=== PATIENT | female | born 1990 | race Caucasian/White ===

== ENCOUNTER 2021-10-24 01:30 | Inpatient (IN) | payer MEDICAID ==
[~2021-10-24] VITALS: Ht 162.6 cm; Wt 113.2 kg
[2021-10-24] VITALS (24 sets, daily range): BP systolic 114–148; BP diastolic 56–89; PULSE 81–125; TEMP 97.9–99.3
--- NOTE | 2021-10-24 01:40 | NUR ---
0140- PATIENT WHEELED ONTO UNIT WITH FRIEND BY HER SIDE. PATIENT OF DR. ATWOOD WHO IS A AT 41.2. PATIENT REPORTS CONSISTENT CONTRACTIONS THAT ARE GETTING MORE PAINFUL OVER THE LAST FEW HOURS AND AT ONE POINT SHE WAS NOT SURE IF HER WATER BROKE OR IF SHE URINATED. PATIENT REPORTS GFM AND NO BLEEDING CONCERNS AT THIS TIEM. 0143- EFM AND TOCO ON AND TRACING. VITALS TAKEN, ASSESSMENT COMPLETED. PLAN OF CARE DISCUSSED. PATIENT DENIES FURTHER NEEDS OR QUESTIONS AT THIS TIME. CALL LIGHT WITHIN REACH.
[2021-10-24] MEDS ORDERED: VALTREX1 GM PO (02:05)
[2021-10-24] MEDS ORDERED: PRENATAL TABLET PO (02:05)
--- NOTE | 2021-10-24 03:41 | NUR ---
0341- ÓSCAR KHALIL AT BEDSIDE FOR EPIDURAL PLACEMENT. PATIENT SITTING ON THE SIDE OF THE BED. MATERNAL O2 SAT ON. FHR NOT TRACING DUE TO MATERNAL POSITION. THIS RN REMAINS AT BEDSIDE. 0355- TEST DOSE, SEE ANESTHESIA RECORD. 0400- PATIENT ASSISTED INTO A WEDGE LEFT POSITION. 0415- PATIENT STILL NOT COMFORTABLE WITH EPIDURAL. PATIENT VERBALZING THE LEFT SIDE IS WHERE IT HURTS. PATIENT ASSISTED INTO LEFT LATERAL POSITION AND EPIDURAL PAIN MEDICATION BOLUS BUTTON PUSHED BY THE PATIENT AT THIS TIME. 0425- PATIENT STILL NOT COMFORTABLE. THIS RN ASKED PATIENT IF SHE COULD CHECK HER CERVIX. PATIENT VERBALIZED YES. SVE 6-/-2. REMI AT BEDSIDE IN AND OUT TRYING TO DOSE EPIDURAL AND GET PATIENT COMFORTABLE. 0435- ÓSCAR KHALIL EXPLAINED TO PATIENT ABOUT REPLACING EPIDURAL AND TRYING AGAIN. PATIENT VERBALIZED UNDERSTANDING AND WAS HELPED INTO A SITTING POSITION AGAIN. FHR NOT TRACING DUE TO MATERNAL POSITION. 0456- TEST DOSE, SEE ANESTHESIA RECORD. 0500- PATIENT ASSISTED INTO A WEDGE LEFT POSITION. PATIENT TOLERATED PROCEDURE WELL AND VOICED ALREADY FEELING BETTER. 0508- PATIENT REQUESTED TO BE LEFT LATERAL TO MAKE SURE HER LEFT SIDE GOT COMFORTABLE WITH EPIDURAL. PATIENT ASSISTED INTO LEFT LATERAL POSITION. 0511- FHR DECELING DOWN INTO THE 80S-90S RANGE. 0513- SVE 9-10 0514- 02 PLACED VIA NRB ON PATIENT. CHARGE NURSE CALLED TO BEDSIDE AT THIS TIME. 0515- Brinda ANDRADE RN AT BEDSIDE ASSISTING. 0516- PATIENT ASSISTED INTO RIGHT LATERAL POSITION. FHR INTERMITTENTLY TRACING BUT AUDIBLY LOW HEART RATE AND TRACING PERIODICALLY IN THE 80S-90S. 0517- PROVIDER CALLED, SEE PHYISICIAN NOTIFICATION. PATIENT ASSISTED INTO HANDS AND KNEES AFTER THIS. THIS RN AND Brinda ANDRADE ATTEMPTING TO TRACING FHR BUT DUE TO MATERNAL POSITION AND SIZE, HAVING A DIFFICULT TIME. 0520- PATIENT ASSISTED BACK INTO WEDGE LEFT POSITION 0521- THIS RN PLACED FSE. FHR IN THE 80S-90S RANGE. PATIENT ASSISTED BACK INTO HANDS AND KNEES POSITION AND FLUID BOLUS INITIATED. 0525- FHR BACK UP INTO THE 125 RANGE WITH VARIABLE/EARLY DECELERATIONS DOWN INTO THE 90S-105 RANGE. 0527- DR. MANCUSO ON UNIT AND REVIEWING STRIP AND PRENATALS. 0533- PATIENT ASSISTED IN SEMI FOWLERS POSITION. 0539- DR MANCUSO AT BEDSIDE FOR SVE AND TO DISCUSS PLAN OF CARE WITH PATIENT. 0540- SVE, COMPLETE AND +2. BED BROKEN DOWN FOR DELIVERY AND NURSERY CALLED TO BEDSIDE. 0550- FIRST PUSH WITH PROVIDER. LATE DECELERATION NOTED AFTER PUSHING. PROVIDER DISCUSSED PLAN OF CARE WITH PATIENT. 0555- PATIENT PUSHING WITH PROVIDER AND FHR DECELARTIONS NOTED AFTER PUSHING DOWN INTO THE 70S-80S. PROVIDER DISCUSSED VAVD WITH PATIENT. SHE VERBALIZED UNDERSTANDING AND AGREED. 0559- VACUUM PLACED ON HEAD FOR FIRST TIME. PATIENT BEGINS PUSHING WITH CONTRACTIONS AND PROVIDER USING VACUUM TO ASSIST. 0608- VAVD OF VIABLE MALE INFANT WITH MECONIUM STAINED FLUID AT DELIVERY. NUCHAL X1 NOTED BY PROVIDER. CLEANED UP AND BULB SUCTIONED OUT BY PROVIDER. CORD CLAMPED AND CUT BY MOTHER AND INFANT TAKEN TO WARMER FOR ASSESSMENT. 0614- OF PLACENTA. PITOCIN STARTED PER PROTOCOL AT 333ML/HR. FUNDUS MASSAGED TO FIRM BY THIS RN WITH MODERATE LOCHIA NOTED. 2ND DEGREE TEAR NOTED BY PROVIDER AND REPAIRED AT THIS TIME. 200 EBL NOTED BY PROVIDER. 0620- FUNDUS FIRM, VITALS STABLE. PATIENT AND ROOM CLEANED UP AND PUT BACK TOGETHER. NEW CHUX, PERIPAD AND ICEPACK TO PERINEUM. RECOVERY STARTED
[2021-10-24 04:36] LABS: BASO # 0.1 K/mm3 (0.0-0.2); BASO % 0.3 % (0.0-2.0); EOS # 0.1 K/mm3 (0.0-0.7); EOS % 0.6 % (0.0-4.0); HEMOGLOBIN 11.7 g/dl (12.5-16.0); LYMPH # 2.5 K/mm3 (1.2-3.4); LYMPH % 16.7 % (20.0-51.0); MEAN CELL VOLUME 79 fl (80.0-100.0); MEAN CORPUSCULAR HEMOGLOBIN 27 pg (27-31); MEAN CORPUSCULAR HGB CONC 34 g/dl (33.0-37.0); MEAN PLATELET VOLUME 11.1 fl (7.4-10.4); MONO # 0.9 K/mm3 (0.1-0.6); MONO % 6.2 % (1.7-9.3); PLATELET COUNT 248 K/mm3 (130-400); RED BLOOD COUNT 4.29 M/mm3 (4.10-5.30); REDCELL DISTRIBUTION WIDTH-CV 15.4 % (11.5-14.5)
[2021-10-24 04:49] LABS: TRICYCLIC ANTIDEPRESS URINE NEGATIVE
[2021-10-25] VITALS: BP 121/66; PULSE 92; TEMP 98.8
[2021-10-25 07:20] VITALS: BP 136/83; PULSE 91; TEMP 98
[2021-10-25] MEDS ORDERED: IBU800 M1 PO (15:20)
[2021-10-25 15:26] VITALS: BP 136/83; PULSE 76; TEMP 98.2
--- NOTE | 2021-10-25 15:42 | NUR ---
AT BEDSIDE DISCUSSING PLAN OF CARE AND TRANSFER OF INFANT TO [facility]. PT TEARFUL BUT STABLE. TORB PER PT MAY DC TO REMAIN AT INFANTS BEDSIDE. ALL DC PAPERWORK REVIEWED AND UNDERSTOOD AT THIS TIME WELL PRESCRIPTIONS, FOLLOW UP APPOINTMENTS, PAIN CONTROL, AND SAFETY MEASURES. PT REPORTS FEELING TOO "OVERWHELMED AND ANXIOUS" TO BEGIN PUMPING TODAY, BUT WANTS TO START THIS EVENING. STATES SHE HAS ALL APPROPRIATE SUPPLIES, BUT ENCOURAGED TO ASK [facility] STAFF IF SHE HAS ANY QUESTIONS. EDUCATED BY THIS NURSE WELL ABOUT PUMPING SCHEDULE, EQUIPMENT AND BREAST MILK STORAGE. PT DENIES FURTHER QUESTIONS OR CONCERNS. VITAL SIGNS STABLE. WILL DC FOLLOWING PENDING TRANSFER TO [facility].
--- NOTE | 2021-10-25 18:30 | NUR ---
1830 SITTING AT BABY'S BEDSIDE IN [facility] WAITING FOR [facility] TRANSPORT TEAM. 1924 NO QUESTIONS ABOUT DISCHARGE AT THIS TIME. DISMISSED TO HOME PER AMB ACC BY PARENTS.
== END 2021-10-25 19:25 | disposition home or self-care (01) | DRG 806 ==
LOC: LDRO 01:30 → LDR 01:58 → LDRO 02:59 → LDR 03:00 → OB 10:15
PROVIDERS: Obstetrics & Gynecology; ADMIT Obstetrics & Gynecology
PROC: 10D07Z6 Extraction of Products of Conception, Vacuum, Via Natural or Artificial Opening (ICD-10-PCS; principal; 2021-10-24)
PROC: 0KQM0ZZ Repair Perineum Muscle, Open Approach (ICD-10-PCS; 2021-10-24)
DX: O48.0 Post-term pregnancy (principal); O98.52 Other viral diseases complicating childbirth; Z37.0 Single live birth; O69.81X0 Labor and delivery complicated by cord around neck, without compression, not applicable or unspecified; O77.0 Labor and delivery complicated by meconium in amniotic fluid; B00.9 Herpesviral infection, unspecified; O99.344 Other mental disorders complicating childbirth; F32.A Depression, unspecified; F41.9 Anxiety disorder, unspecified; O99.214 Obesity complicating childbirth; O99.824 Streptococcus B carrier state complicating childbirth; O70.1 Second degree perineal laceration during delivery; O76 Abnormality in fetal heart rate and rhythm complicating labor and delivery; Z3A.41 41 weeks gestation of pregnancy; Z23 Encounter for immunization
CPT/HCPCS: J2540; J2590; J7120